=== PATIENT | female | born 1965 | race Caucasian/White ===

== ENCOUNTER 2022-06-15 06:56 | Day surgery (SDC) | payer OTHER ==
[2022-06-15] MEDS ORDERED: Versed 2 MG/2 ML Injection IV PRN (07:06)
[2022-06-15] MEDS: Lactated Ringers 1,000 ML IV SCH ×2 (07:18→09:31)
[2022-06-15] MEDS ORDERED: CEFAZOLIN 2 GM-D5W BAG** 2 GM/50 ML ML IV SCH (07:30)
[2022-06-15] MEDS ORDERED: Versed 2 MG/2 ML Injection ONE ×2 (07:57→10:18)
[2022-06-15] MEDS ORDERED: Lactated Ringers 1,000 ML IV ONE (09:28)
[2022-06-15] MEDS ORDERED: DIPRIVAN 200 MG/20 ML IV ONE (10:17)
[2022-06-15] MEDS ORDERED: Xylocaine-Mpf 2% 5 Ml Vial ONE (10:17)
[2022-06-15] MEDS ORDERED: Zofran 4 MG/2 ML VIAL ONE (10:17)
[2022-06-15] MEDS ORDERED: SUBLIMAZE 100 MCG/2 ML ONE (10:18)
[2022-06-15 11:48] VITALS: BP 141/68; PULSE 67; O2SAT 98
--- NOTE | 2022-06-16 15:16 | OP ---
SURGERY DATE/TIME: 06/15/2022 1027 PREOPERATIVE DIAGNOSES: 1) Menorrhagia. 2) Fibroid uterus. POSTOPERATIVE DIAGNOSES: 1) Menorrhagia. 2) Fibroid uterus. PROCEDURE: Hysteroscopy D&C with endometrial ablation. SURGEON: Marcus Ceron D.O. LABVIEW PROGRAMMER: Daniela Mcleod surgical assistant. ANESTHESIA: General. ESTIMATED BLOOD LOSS: Minimal. COMPLICATIONS: None. INDICATIONS: The risks, benefits, indications and alternatives of the procedure were reviewed with the patient prior to procedure. The patient understood the risk of infection, bleeding, bowel injury, bladder injury, ureteral injury, uterine perforation, pelvic infection associated with this surgery and desires to have this surgery as a possible means to alleviate her current medical condition. DESCRIPTION OF PROCEDURE AND FINDINGS: At this point the patient is taken to the operating room, given general sedation, placed in dorsal lithotomy position, prepped and draped in the usual sterile fashion. A weighted speculum is then placed in the patient's vagina and the anterior lip of the cervix grasped with a single tooth tenaculum. Endocervical dilators were advanced through the endocervical canal as a means to dilate the cervix and the uterus was sounded to approximately 8 cm. From this point, a 5 mm hysteroscope was then placed in through the fundus of the uterus where visualization appeared to be within normal limits with no gross abnormalities that were noted. The hysteroscope was then removed. EndoCurette was then placed into the fundus of the uterus and curettage was performed in all quadrants of the uterus retrieving a mild to moderate amount of endometrial tissue. From this point hemostasis was obtained. From this point the NovaSure was then used and was taken through the endocervical canal towards the fundal region and retracted approximately 1 cm and was then engaged for an ablative time of 1 minute and 13 seconds. The measurements were then length was 6.5 cm and the width was 4.6 cm. After complete ablation, the instrument was disengaged and removed from the uterine cavity and was done so without complication. From this point all instruments were removed from the patient's vaginal region. The patient was then taken out of the dorsal lithotomy position, was taken out of anesthesia and was then taken to the recovery room in stable condition. All instruments and laps were accounted for x2.
== END 2022-06-15 11:55 | disposition home or self-care (01) ==
LOC: SDC 06:56
PROVIDERS: ATTEND Obstetrics & Gynecology
DX: N92.0 Excessive and frequent menstruation with regular cycle (principal); D25.9 Leiomyoma of uterus, unspecified
CPT/HCPCS: 58563; 81025; J0690; J2250; J2405; J2704; J3010